=== PATIENT | male | born 1945 | race Caucasian/White ===

== ENCOUNTER 2021-05-01 13:37 | Emergency (ER) | payer OTHER ==
[~2021-05-01 13:37] MED LIST: AUGMENTIN 875-1 EACH PO; LODINE CAP 300300 MG PO; NORFLEX 100 MG100 MG PO; ZOFRAN ODT 4 MG4 MG SL
[2021-05-01] MEDS ORDERED: BACTROBAN OINT22 GM EXT (14:59)
== END 2021-05-01 15:15 | disposition home or self-care (01) ==
LOC: ER1 13:37
DX: S61.215A Laceration without foreign body of left ring finger without damage to nail, initial encounter (principal); I10 Essential (primary) hypertension; E11.9 Type 2 diabetes mellitus without complications; W26.8XXA Contact with other sharp object(s), not elsewhere classified, initial encounter; Y92.009 Unspecified place in unspecified non-institutional (private) residence as the place of occurrence of the external cause
CPT/HCPCS: 12001; 90471; 90715; 99282